=== PATIENT | female | born 1990 | race Asian ===

== ENCOUNTER 2022-04-15 06:03 | Day surgery (SDC) | payer OTHER ==
[2022-04-13 14:17] VITALS: BMI 20.1
[2022-04-15] MEDS ORDERED: PROPOFOL 40 ML ONE (07:05)
[2022-04-15 07:16] LABS: BHCG - Serum Negative (NEGATIVE); Pregs Control Background? CLEAR/WHITE (CLR/WHITE); Pregs Control Bar Appear? YES (CONTROL BAR)
[2022-04-15] MEDS ORDERED: PHENYLEPHRINE-NS 100 MCG/ML 10 ML SYRINGE ONE (07:53)
[2022-04-15] MEDS ORDERED: PROPOFOL 20 ML ONE (08:23)
== END 2022-04-15 09:16 | disposition home or self-care (01) ==
LOC: CSHSDC 06:03
PROVIDERS: ATTEND Internal Medicine Gastroenterology
PROC: 0DJD8ZZ Inspection of Lower Intestinal Tract, Via Natural or Artificial Opening Endoscopic (ICD-10-PCS; principal; 2022-04-15)
DX: K59.00 Constipation, unspecified (principal); R10.9 Unspecified abdominal pain; G89.29 Other chronic pain; K57.30 Diverticulosis of large intestine without perforation or abscess without bleeding
CPT/HCPCS: 84703; J2704